=== PATIENT | male | born 1955 | race Caucasian/White ===

== ENCOUNTER 2019-08-21 08:15 | Emergency (ER) | payer MEDICARE, MEDICAID ==
[~2019-08-21] VITALS: Ht 172.7 cm; Wt 72.6 kg
[2019-08-21 08:15] VITALS: BP 104/68
--- NOTE | 2019-08-21 08:20 | NUR ---
ED Nurse Note: Patient ELIZABET from [facility]. Patient had an unwitnessed fall last and was found by [employer] on the sidewalk. Patient stated that he slipped while trying to get into his wheelchair. Patient has dried blood on forehead. AxO x 4, cooperative. No s/s of acute distress. Patient on the lunchroom monitor, bed in lowest position.
[2019-08-21] MEDS ORDERED: NORCO 5-325 TA1 EACH ORAL (08:28)
[2019-08-21] MEDS ORDERED: TYLENOL EXTRA500 MG ORAL (08:28)
[2019-08-21] MEDS ORDERED: FOLIC ACID1 MG ORAL (08:28)
[2019-08-21] MEDS ORDERED: VITAMIN B-1100 MG ORAL (08:28)
[2019-08-21] MEDS ORDERED: PEPTO-BISM525 MG/15 PO (08:28)
--- NOTE | 2019-08-21 09:36 | Diagnostic Imaging Report ---
EXAM: CT Head Without Intravenous Contrast CLINICAL HISTORY: FALL TECHNIQUE: Axial computed tomography images of the head/brain without intravenous contrast. CTDI is 62.70 mGy and DLP is 1394.90 mGy-cm. One or more of the following dose reduction techniques were used: automated exposure control, adjustment of the mA and/or kV according to patient size, use of iterative reconstruction technique. Coronal reformatted images were created and reviewed. COMPARISON: No relevant prior studies available. FINDINGS: Brain: Generalized parenchymal volume loss, likely age-related. Periventricular white matter hypodensities. No evidence of acute intracranial hemorrhage. No mass effect or midline shift. Ventricles: Unremarkable. No ventriculomegaly. Bones/joints: Unremarkable. No acute fracture. Soft tissues: Unremarkable. Sinuses: Unremarkable as visualized. No acute sinusitis. Mastoid air cells: Unremarkable as visualized. No mastoid effusion. Vascular: Atherosclerotic calcifications within the cavernous portions of bilateral ICAs. IMPRESSION: 1. No acute intracranial findings. 2. Periventricular white matter hypodensities, likely related to chronic small vessel disease changes. 3. Generalized cerebral parenchymal volume loss, likely age-related.
--- NOTE | 2019-08-21 09:54 | Emergency Room Report ---
History of Present Illness General Chief Complaint: Multiple Trauma/Fall Source: Medical Record Present Illness HPI 64-year-old male who is wheelchair-bound found to have a fall outside of his rehabilitation facility. Patient reported he was trying to get into his wheelchair when he slipped and fell. He fell onto the street around 2 AM. He denies any loss of consciousness. He is unable to give further information on how he fell out of his wheelchair. Allergies: Coded Allergies: No Known Allergies (Unverified , 08/21/19) Nursing Documentation-[facility] Past Medical History: No History, Except For History Of Psychiatric Problem: Yes - anxiety Review of Systems Constitutional: Denies: chills, fever Respiratory: Denies: cough, shortness of breath Cardiovascular: Denies: chest pain, palpitations Gastrointestinal: Denies: diarrhea, vomiting Genitourinary: Denies: hematuria, pain Musculoskeletal: Denies: joint swelling Skin: Denies: rash, lesions Neurological: Denies: headache, dizziness Physical Exam Vital Signs Date Time Temp Pulse Resp B/P (MAP) Pulse Ox O2 Delivery O2 Flow Rate FiO2 08/21/19 08:13 98.4 72 16 102/64 (77) 97 Room Air Sp02 EP Interpretation: reviewed General Appearance: well appearing, no apparent distress, non-toxic Head: normocephalic, atraumatic Eyes: bilateral eye normal inspection ENT: hearing grossly normal, EOM grossly intact, moist mucus membranes Neck: supple Respiratory: lungs clear, normal breath sounds, no respiratory distress, speaking full sentences Cardiovascular #1: regular rate, rhythm, normal capillary refill Cardiovascular #2: 2+ radial (R), 2+ radial (L) Gastrointestinal: soft, non-distended Rectal: deferred Musculoskeletal: moves extm spontaneously, no lower extremity edema, other - Limited range of motion on left lower extremity unchanged from baseline Neurologic: grossly normal Psychiatric: mood/affect normal Skin: warm/dry, normal turgor, abrasion - Left eyebrow facial abrasion, no laceration, no active bleeding, other - healing ulceration on right lower extremity, mild erythema, no foul odorous, no discharge Medical Decision Making Diagnostic Impression: Primary Impression: Fall Additional Impressions: Head injury Abrasion ER Course 64-year-old male wheelchair-bound status post fall from wheelchair. Reported to have abrasion on it. Injury happened several hours prior to arrival. Patient unable to give full history on how he fell out of a wheelchair. Due to unwitnessed injury will perform CT scan to evaluate for intracranial hemorrhage. CT/MRI/US Diagnostic Results CT/MRI/US Diagnostic Results : Impression Procedure: CT Head no Contrast EXAM: CT Head Without Intravenous Contrast CLINICAL HISTORY: FALL TECHNIQUE: Axial computed tomography images of the head/brain without intravenous contrast. CTDI is 62.70 mGy and DLP is 1394.90 mGy-cm. One or more of the following dose reduction techniques were used: automated exposure control, adjustment of the mA and/or kV according to patient size, use of iterative reconstruction technique. Coronal reformatted images were created and reviewed. COMPARISON: No relevant prior studies available. FINDINGS: Brain: Generalized parenchymal volume loss, likely age-related. Periventricular white matter hypodensities. No evidence of acute intracranial hemorrhage. No mass effect or midline shift. Ventricles: Unremarkable. No ventriculomegaly. Bones/joints: Unremarkable. No acute fracture. Soft tissues: Unremarkable. Sinuses: Unremarkable as visualized. No acute sinusitis. Mastoid air cells: Unremarkable as visualized. No mastoid effusion. Vascular: Atherosclerotic calcifications within the cavernous portions of bilateral ICAs. IMPRESSION: 1. No acute intracranial findings. 2. Periventricular white matter hypodensities, likely related to chronic small vessel disease changes. 3. Generalized cerebral parenchymal volume loss, likely age-related. Reevaluation Time: 10:40 Last Vital Signs Date Time Temp Pulse Resp B/P (MAP) Pulse Ox O2 Delivery O2 Flow Rate FiO2 08/21/19 08:15 72 16 Room Air 08/21/19 08:15 98.4 104/[address] reviewed within normal limits. No signs of head injury. Patient stable for outpatient follow-up and discharge Disposition: ASSISTED LIVING Condition: Stable Referrals: NOT CHOSEN [facility]/,REFERRING (PCP) Patient Instructions: Fall Prevention in Hospitals, Adult, Head Injury, Adult Additional Instructions: Please follow-up with your primary care doctor in 2 to 3 days for reevaluation of head injury. Return to emergency room with any new or worsening symptoms Aaron Joseph M.D. Aug 21, 2019 09:54
[2019-08-21 10:05] VITALS: BP 108/70
--- NOTE | 2019-08-21 11:27 | NUR ---
ED Nurse Note: [facility] back to the facility
[2019-08-21 12:05] VITALS: BP 107/78
== END 2019-08-21 12:05 | disposition home or self-care (01) ==
LOC: EDBD 08:15 → EMR 09:40
DX: S09.90XA Unspecified injury of head, initial encounter (principal); S00.212A Abrasion of left eyelid and periocular area, initial encounter; W05.0XXA Fall from non-moving wheelchair, initial encounter; Y92.9 Unspecified place or not applicable; Y99.8 Other external cause status; Z99.3 Dependence on wheelchair; F41.9 Anxiety disorder, unspecified
CPT/HCPCS: 70450; 99284

== ENCOUNTER 2019-09-17 14:35 | Emergency (ER) | payer MEDICARE, MEDICAID ==
[~2019-09-17] VITALS: Ht 182.9 cm; Wt 72.6 kg
[~2019-09-17 14:35] MED LIST: FOLIC ACID1 MG ORAL; NORCO 5-325 TA1 EACH ORAL; PEPTO-BISM525 MG/15 PO; TYLENOL EXTRA500 MG ORAL; VITAMIN B-1100 MG ORAL
[2019-09-17 15:15] VITALS: BP 120/68
[2019-09-17] MEDS ORDERED: Cefepime HCl 2 GM in NS 110 ML IV ONE (15:15)
--- NOTE | 2019-09-17 15:20 | NUR ---
ED Nurse Note: Patient arrived to ED by EMS, he is here to be seen by a Provider to evaluate for possible placement at a facility.
[2019-09-17 16:08] LABS: BASOPHILS % (AUTO) 1.3 % (0.0-2.0); EOSINOPHILS % (AUTO) 2.1 % (0.0-3.0); HEMOGLOBIN 12.7 G/DL (14.2-18.0); LYMPHOCYTES % (AUTO) 28.8 % (20.0-45.0); MEAN CORPUSCULAR VOLUME 93 FL (80-99); MONOCYTES % (AUTO) 12.6 % (1.0-10.0); NEUTROPHILS % (AUTO) 55.2 % (45.0-75.0); PLATELET COUNT 149 K/UL (150-450); RED BLOOD COUNT 3.89 M/UL (4.70-6.10); RED CELL DISTRIBUTION WIDTH 13.4 % (11.6-14.8); WHITE BLOOD COUNT 7.9 K/UL (4.8-10.8)
[2019-09-17 16:25] LABS: ANION GAP 8 mmol/L (5-15); BLOOD UREA NITROGEN 9 mg/dL (7-18); CALCIUM 8.3 MG/DL (8.5-10.1); CARBON DIOXIDE 27 MMOL/L (21-32); CHLORIDE 108 MMOL/L (98-107); CREATININE 0.9 MG/DL (0.55-1.30); POTASSIUM 3.5 MMOL/L (3.5-5.1); SODIUM 143 MMOL/L (136-145)
[2019-09-17 16:30] LABS: INR 1.1 (0.9-1.1)
--- NOTE | 2019-09-17 16:40 | Diagnostic Imaging Report ---
Indication: Left knee pain Technique: One view of the left knee Comparison: none Findings: Only a single view could be obtained, due to patient inability to extend knee. Exam is therefore very limited. No gross acute fractures. There are probably degenerative changes of the medial and lateral joint compartment. The bones are osteoporotic. There are vascular calcifications Impression: Very limited exam. No gross acute abnormality
[2019-09-17 16:45] LABS: ALANINE AMINOTRANSFERASE 62 U/L (12-78); ALBUMIN 2.9 G/DL (3.4-5.0); ALBUMIN/GLOBULIN RATIO 0.7 (1.0-2.7); ALKALINE PHOSPHATASE 148 U/L (46-116); ASPARTATE AMINO TRANSFERASE 92 U/L (15-37); BILIRUBIN,TOTAL 1.2 MG/DL (0.2-1.0)
[2019-09-17 16:47] LABS: BILIRUBIN,DIRECT 0.5 MG/DL (0.0-0.3)
--- NOTE | 2019-09-17 16:47 | Diagnostic Imaging Report ---
Indication: Ankle pain Technique: 3 views of the right ankle Comparison: none Findings: There is an old healed distal fibular and distal tibial fracture deformity, with bone seen bridging the 2 bones. No acute fractures. No dislocations. There is degenerative narrowing of the tibiotalar joint. The bones are osteoporotic. There is a small plantar spur. Impression: Findings as noted. No acute bony trauma
--- NOTE | 2019-09-17 16:48 | Diagnostic Imaging Report ---
Indication: Chest pain Technique: One view of the chest Comparison: none Findings: Per technologist, patient requested not to remove jacket, resulting in considerable overlying metal. The heart size is normal. There is mild generalized interstitial congestion. No definite effusion Impression: Mild interstitial congestion diffusely
--- NOTE | 2019-09-17 17:13 | Emergency Room Report ---
History of Present Illness General Chief Complaint: General Complaint Source: Patient Present Illness HPI 64-year-old male with history of alcohol abuse and chronic ulceration of both lower extremities here complaining of worsening ulceration noted on right ankle however denies any pain. Denies tingling and numbness. Denies fever and chills. Reports that he often takes alcohol as a painkiller. Denies chest pain , shortness of breath, palpitation, headache and dizziness at this time. Patient is also looking into SNF placement Allergies: Coded Allergies: No Known Allergies (Unverified , 08/21/19) Patient History Past Medical History: see triage record Past Surgical History: unable to obtain Pertinent Family History: unable to obtain Social History: Reports: alcohol use Immunizations: UTD Reviewed Nursing Documentation: PMH: Agreed; PSxH: Agreed Nursing Documentation-PMH Past Medical History: No History, Except For Review of Systems All Other Systems: negative except mentioned in HPI Physical Exam Vital Signs Date Time Temp Pulse Resp B/P (MAP) Pulse Ox O2 Delivery O2 Flow Rate FiO2 09/17/19 15:00 98.4 100 20 120/68 (85) 95 Room Air Sp02 EP Interpretation: reviewed, normal General Appearance: no apparent distress, alert, GCS 15, non-toxic Head: normocephalic, atraumatic Eyes: bilateral eye normal inspection, bilateral eye PERRL ENT: hearing grossly normal, normal pharynx, no angioedema, normal voice Neck: full range of motion, supple/symm/no masses Respiratory: chest non-tender, lungs clear, normal breath sounds, no rhonchi, no wheezing, speaking full sentences Cardiovascular #1: regular rate, rhythm, no edema, no murmur Cardiovascular #2: 2+ dorsalis pedis (R), 2+ dorsalis pedis (L) Gastrointestinal: normal bowel sounds, non tender, soft, non-distended, no guarding, no rebound Rectal: deferred Musculoskeletal: back normal, swelling - Right ankle with ulceration Neurologic: alert, motor strength/tone normal, oriented x3, sensory intact, responsive, speech normal Psychiatric: judgement/insight normal Skin: other - Infected ulcer right ankle Lymphatic: no adenopathy Medical Decision Making PA Attestation All diagnoses and treatment plans were reviewed and discussed with my supervising physician Dr. Rojas Diagnostic Impression: Primary Impression: Ankle ulcer Additional Impression: Arthritis of knee ER Course 64-year-old male with history of alcohol abuse and chronic ulceration of both lower extremities here complaining of worsening ulceration noted on right ankle however denies any pain. Denies tingling and numbness. Denies fever and chills. Reports that he often takes alcohol as a painkiller. Denies chest pain , shortness of breath, palpitation, headache and dizziness at this time. Patient is also looking into SNF placement Ddx considered but are not limited to: ankle sprain, ankle strain, ankle fracture, ankle contusion Vital signs: are WNL, pt. is afebrile H&PE are most consistent with: Ankle ulcer, arthritis of the knee as patient complained of left knee pain ORDERS: ankle x-ray to rule out osteomyelitis left knee x-ray, sepsis work-up, Keflex, Motrin ED INTERVENTIONS: Ancef, DISCHARGE: At this time pt. is stable for d/c to home. Will provide printed patient care instructions, and any necessary prescriptions. Care plan and follow up instructions have been discussed with the patient prior to discharge. I informed patient that patient cannot be placed in here tonight as no beds are available patient needs to check into assisted living. Patient stable to be discharged. No signs of osteomyelitis and sepsis noted. Patient to continue taking Keflex at discharge. I gave patient a list of homeless shelters. If worsening symptoms return to the emergency room. Patient was also provided with a taxi voucher EKG Diagnostic Results Rate: normal Rhythm: NSR ST Segments: no acute changes Other Impression No acute ST changes Chest X-Ray Diagnostic Results Chest X-Ray Diagnostic Results : Chest X-Ray Ordered: Yes # of Views/Limited/Complete: 1 View Indication: Other EP Interpretation: Yes PA Xray: Interpretation reviewed, by supervising MD, and agrees with findings. Interpretation: no consolidation, no effusion, no pneumothorax Impression: No acute disease Electronically Signed by: Edilberto Torrez PA-C Other X-Ray Diagnostic Results Other X-Ray Diagnostic Results : X-Ray ordered: Right ankle # of Views/Limited Vs Complete: 3 View Indication: Pain EP Interpretation: Yes PA Xray: Interpretation reviewed, by supervising MD, and agrees with findings. Interpretation: no dislocation, no soft tissue swelling, no fractures, other - no osteomylitis noted Impression: No acute disease Electronically Signed by: Edilberto Torrez PA-C Last Vital Signs Date Time Temp Pulse Resp B/P (MAP) Pulse Ox O2 Delivery O2 Flow Rate FiO2 09/17/19 15:15 100 20 Room Air 09/17/19 15:15 98.4 120/68 95 Disposition: HOME, SELF-CARE Condition: Stable Scripts Ibuprofen* (MOTRIN*) 600 Mg Tablet 600 MG ORAL Q8H PRN for For Pain, #30 TAB 0 Refills Prov: Edilberto Fernandez 09/17/19 Cephalexin* (KEFLEX*) 500 Mg Capsule 500 MG ORAL EVERY 6 HOURS for 7 Days, #28 CAP Prov: Edilberto Fernandez 09/17/19 Referrals: NOT CHOSEN [facility]/,REFERRING (PCP) Patient Instructions: Arthritis, [id number], Pressure Ulcer Edilberto Fernandez Sep 17, 2019 17:13
[2019-09-17] MEDS ORDERED: CEPHALEXIN500 MG ORAL (17:14)
[2019-09-17] MEDS ORDERED: IBUPROFEN600 MG ORAL (17:14)
[2019-09-17 17:20] VITALS: BP 120/68
== END 2019-09-17 17:20 | disposition home or self-care (01) ==
LOC: EMR 17:01
DX: L97.319 Non-pressure chronic ulcer of right ankle with unspecified severity (principal); M17.10 Unilateral primary osteoarthritis, unspecified knee; Z72.89 Other problems related to lifestyle
CPT/HCPCS: 36415; 71045; 80053; 82248; 83605; 83880; 84484; 85025; 85610; 85730; 87040; 93005; 96365; 99284